=== PATIENT | male | born 1980 | race Caucasian/White ===

== ENCOUNTER 2017-12-27 04:41 | Emergency (ER) | payer MEDICAID ==
--- NOTE | 2017-12-27 05:14 | C.PDOC ---
History Of Present Illness patient presents with spontaneous epistaxis of right nare. No f/c/n/v or trauma. no evidence of trauma/septal hematoma Time Seen by Provider: 12/27/17 04:55 Chief Complaint (Nursing): ENT Problem History Per: Patient History/Exam Limitations: None Onset/Duration Of Symptoms: Mins Current Symptoms Are (Timing): Still Present Symptoms Have Been: Continuous Severity: Moderate Pain Scale Rating Of: 0 Anticoagulant/Antiplatlet Use?: No Recent Aspirin Use: Yes (Last Taken) (2 days ago) Past Medical History Reviewed: Historical Data, Nursing Documentation, Vital Signs Vital Signs: Last Vital Signs Temp 98.1 F 12/27/17 04:47 Pulse 104 H 12/27/17 04:47 Resp 16 12/27/17 04:47 BP 183/112 H 12/27/17 04:47 Pulse Ox 98 12/27/17 04:47 - Medical History PMH: HTN Denies: Chronic Kidney Disease - Fancy Procedures OTHER SKIN & SUBQ I D (05/01/13) Family History: States: No Known Family Hx - Social History Hx Tobacco Use: No Hx Alcohol Use: No Hx Substance Use: No - Immunization History Hx Tetanus Toxoid Vaccination: No Hx Influenza Vaccination: No Hx Pneumococcal Vaccination: No Review Of Systems Constitutional: Negative for: Fever, Chills ENT: Positive for: Other (r nare epistaxix) Respiratory: Negative for: Shortness of Breath Skin: Negative for: Rash Neurological: Negative for: Weakness Psych: Positive for: Anxiety Physical Exam - Physical Exam Appears: Non-toxic Skin: Warm, Dry Nose: Epistaxis (r nare), No Septal Hematoma Oral Mucosa: Moist Tongue: Normal Appearing Throat: No Erythema, No Exudate ED Course And Treatment O2 Sat by Pulse Oximetry: 98 Pulse Ox Interpretation: Normal Progress Note: after 5 min of direct pressure, no more active bleeding seen. Reevaluation Time: 06:00 Reassessment Condition: Improved Disposition Counseled Patient/Family Regarding: Studies Performed, Diagnosis - Disposition Referrals: Kalin Macdonald MD [Staff Provider] - Disposition: HOME/ ROUTINE Disposition Time: 05:10 Condition: FAIR Additional Instructions: Please return if symptoms recur Instructions: Nosebleeds (DC) Forms: [employer] ([place]) - Clinical Impression Clinical Impression: Epistaxis
[2017-12-27 05:37] VITALS: BP 147/92; PULSE 94; RESP 18; TEMP 97.9
[2017-12-27 06:00] VITALS: O2SAT 98
== END 2017-12-27 06:06 | disposition home or self-care (01) ==
LOC: C.ER 04:41
DX: R04.0 Epistaxis (principal)